=== PATIENT | female | born 1985 | race American Indian/Alaskan Native ===

== ENCOUNTER 2020-06-21 19:01 | Observation (INO) ==
[2020-06-21] MEDS ORDERED: ceFAZolin 1 GM VIAL IV ONE ×2 (19:44→19:54)
[2020-06-21] MEDS ORDERED: ACETAMINOPHEN 325 MG TABLET PO ONE (19:44)
[2020-06-21] MEDS ORDERED: 0.9 % SODIUM CHLORIDE 1,000 ML IV SCH ×2 (19:45→22:43)
--- NOTE | 2020-06-21 20:02 | Emergency Department Note ---
Skin/Abscess/FB HPI General Chief complaint: Skin/Abscess/Rash Stated complaint: R hand swelling Time Seen by Provider: 06/21/20 19:27 Source: patient Mode of arrival: ambulatory Limitations: no limitations History of Present Illness HPI Narrative: Narrative: 35-year-old female presents emergency department because of a swollen left hand. She states that it has been swollen for 4 days. She states she uses intrav enous heroin and she inserted a needle into her left hand. She was unable to find a vein and so she withdrew the needle before injecting the contents. Nevertheless the hand began to swell. She states she was seen at a [facility] 2 days ago when she was prescribed oral antibiotics but she did not start them. She said the hospital in [place] advised her to be reseen if the infection got worse which it has. She states that the swelling extends from the hand all the way up through her forearm and past her elbow to her shoulder. She rates the pain as a 4 on a 0-to-10 scale and says she can manage it with just Tylenol. it is worse with palpation or movement. The pain is constant. It is a dull throbbing. It is better when she holds her hand up. Pain radiates proximally from the hand. There is no associated fever. Patient states that she uses heroin on a daily or every other day basis. States that she uses about 1 point per day. She states she occasionally uses methamphetamines as well. 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 Related Data Home Medications Medication Instructions Recorded Confirmed implanted control See Rx Instructions .ROUTE .COMPLEX 03/28/18 06/21/20 Allergies Allergy/AdvReac Type Severity Reaction Status Date / Time acetaminophen Allergy Rash Verified 06/21/20 19:09 [From Darvocet-N] propoxyphene Allergy Rash Verified 06/21/20 19:09 [From Darvocet-N] codeine AdvReac Other Verified 06/21/20 19:09 [From Tylenol-Codeine #3] ibuprofen AdvReac Other Verified 06/21/20 19:09 ketorolac [From Toradol] AdvReac Anxiety Verified 06/21/20 19:09 tramadol AdvReac Anxiety Verified 06/21/20 19:09 Review of Systems ROS ROS Narrative: Narrative: Constitutional: Reports fever Eyes: Denies eye pain ENT ED: Reports rhinorrhea; Denies throat pain and congestion Cardiovascular: Reports chest pain (From the left upper extremity) Respiratory: Reports shortness of breath, cough and phlegm Gastrointestinal: Denies nausea, vomiting and diarrhea Genitourinary: Denies dysuria Musculoskeletal: Reports back pain and other (Positive neck pain. She has significant pain in the left upper extremity where the cellulitis is located.) Integumentary: Reports rash Neurological: Reports headache Psychiatric: Reports anxiety and depression Hematological/Lymphatic: Denies easy bleeding PFSH Narrative Patient History Narrative: Narrative: Medical/Surgical/Family History All Active Problems (Updated 06/21/20 @ 19:59 by Pepito Arias MD) UTI (urinary tract infection) (Acute) Hand fracture, right (Acute) Pneumonia (Acute) Chest pain (Acute) IV drug abuse (Acute) Bacteremia due to methicillin susceptible Staphylococcus aureus (MSSA) (Acute) Laceration of hand (Acute) Infection of left hand (Acute) Cellulitis (Acute) Medical History (Updated 06/21/20 @ 19:59 by Pepito Arias MD) UTI (urinary tract infection) Social History Smoking Status: Current every day smoker Alcohol Intake Frequency: holiday/special occasion only Substance Use: former substance user, heroin and IV drugs Exam Narrative Narrative: Narrative: General Limitations: no limitations General appearance: Present alert and in distress Head Head: Present atraumatic and normocephalic Eye Eye: Present PERRL and EOMI; Absent scleral icterus ENT ENT: Present normal oropharynx and mucous membranes moist Neck Neck: Present normal inspection and trachea midline Chest Chest: Present normal inspection Respiratory Respiratory: Present normal lung sounds bilaterally Cardiovascular Cardiovascular: Present regular rate and normal rhythm Adbominal Abdominal: Present soft; Absent tenderness Rectal Rectal: Present deferred Extremities Extremities: Present tenderness (Significant erythema and tenderness along the left upper extremity all the way to the shoulder. Firmness medially.), pedal edema (Bilateral lower extremity edema +2/4 in the lower pretibial area.), pretibial edema (Pretibial edema has been present for 4 months. It is 2+/4 pitting.) and other (Major swelling of the left hand with a wound like lesion on the dorsum proximal to the second MCP. Patient has limited flexion extension of her hand secondary to edema. She has a ring present on her fourth digit which was cut off here in the emergency department.); Absent full ROM Back Back: Present normal inspection; Absent tenderness Neurological Neurological: Present alert and oriented X3 Psychiatric Psychiatric: Present normal affect and normal mood Skin Skin: Present warm (WNL) and dry Course Consultations Consultation #1: I discussed case with Dr. Wheeler. Patient will be given 2 g of Ancef IV have hand elevation. We will consider applying a splint. I will contact the hospitalist for admission. Time: 19:45 Consultation #2: call placed to Hospitalist. Time: 19:50 Vital Signs Vital signs: Vital Signs Temperature 98.1 F 06/21/20 19:04 Pulse Rate 112 H 06/21/20 19:04 Respiratory Rate 16 06/21/20 19:04 Blood Pressure 118/74 06/21/20 19:04 Temperature 98.3 F 06/21/20 22:40 Pulse Rate 99 H 06/21/20 22:49 Respiratory Rate 16 06/21/20 22:40 Blood Pressure 117/92 06/21/20 22:49 Pulse Oximetry (%) 96 06/21/20 23:08 MDM MDM Narrative Medical decision making narrative: Narrative: 35-year-old female presents emergency department with a significantly swollen left hand with swelling all the way up into the axilla. Patient states it began 4 days ago. Began she was seen 2 days ago at a hospital in [place] which started her on oral antibiotics but she did not fill the prescription and it continues to get worse. She was advised to return if is getting worse. Differential diagnosis includes left hand abscess, left hand cellulitis, left hand foreign body, left hand osteomyelitis, IVDA with heroin addiction. IV access is obtained and patient had blood cultures of plus blood work obtained. Patient started on Ancef 2 g IV. X-rays will be obtained to rule out foreign body or osteo or fracture. Case was discussed with orthopedist Dr. Wheeler who agrees to follow the patient. Case will be admitted to the hospitalist. Lab Data Result diagrams: 06/21/20 20:12 06/21/20 20:12 Labs: Lab Results 06/21/20 06/21/20 Range/Units 20:12 20:12 WBC 6.1 (4.5-11.0) K/mcL RBC 3.48 L (4.00-5.20) M/mcL Hgb 10.6 L (12.0-15.0) g/dL Hct 32.7 L (36.0-48.0) % MCV 94.0 (80.0-100.0) fL MCH 30.5 (26.0-34.0) pg MCHC 32.4 (31.0-36.0) g/dL RDW 12.5 (11.5-14.5) % Plt Count 212 (140-440) K/mcL MPV 11.7 H (7.4-10.4) fL Neut % (Auto) 56.5 (38.0-78.0) % Lymph % (Auto) 29.6 (15.0-49.0) % Dale % (Auto) 10.9 (1.0-12.0) % Eos % (Auto) 2.3 (0.0-7.0) % Baso % (Auto) 0.7 (0.0-2.0) % Lymph # (Auto) 1.79 (1.50-4.80) K/mcL Dale # (Auto) 0.66 (0.10-0.90) K/mcL Eos # (Auto) 0.14 (0.00-0.70) K/mcL Baso # (Auto) 0.04 (0.00-0.20) K/mcL Absolute Neutrophils 3.42 (1.80-8.00) K/mcL Sodium 132 L (133-145) mmol/L Potassium 3.8 (3.3-5.1) mmol/L Chloride 100 (96-108) mmol/L Carbon Dioxide 26 (22-30) mmol/L Anion Gap 6.0 L (8.0-16.0) BUN 9 (6-20) mg/dL Creatinine 0.6 (0.6-1.1) mg/dL GFR Calculation 119 Glucose 115 H (70-105) mg/dL Calcium 8.6 (8.6-10.4) mg/dL Total Bilirubin 0.2 (0.1-1.0) mg/dL AST 22 (<32) U/L ALT 19 (<40) U/L Alkaline Phosphatase 68 (39-117) U/L Total Protein 6.7 (5.9-8.4) gm/dL Albumin 3.8 (3.2-5.2) gm/dL Globulin 2.9 (2.2-3.7) gm/dL Albumin/Globulin Ratio 1.3 (1.0-2.3) ED POC Tests ED POC Tests: LIBAN - SARS Antigen Negative Discharge Plan Patient/Caregiver Discharge Instructions Pt seen by LOGISTICS ADMINISTRATOR/PA only: No Clinical Impression: Infection of left hand, IV drug abuse Cellulitis Qualifiers: Site of cellulitis: extremity Site of cellulitis of extremity: upper extremity Laterality: left Qualified Code(s): L03.114 - Cellulitis of left upper limb Activity: other Patient Disposition: Still a Patient Condition: Fair Discharge Date/Time: 06/21/20 22:30 Discharge Comment: [id number]
--- NOTE | 2020-06-21 20:46 | Internal Med History&Physical ---
HPI History of Present Illness Patient information: Note initiated : 06/21/20 at 8:42 pm Service Date, if different from initiated Date: [] Patient: Lucy Ruth a 35 y/o F admitted on for R hand swelling. Chief Complaint: [] History of present illness: Ms. Ruth is a 35 year old F Presents to the ED with left hand swelling and pain. 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 She used her left hand recently. About 4 days ago started having increased swelling. She went to the hospital [place] was prescribed oral antibiotics but did not take those because she said she could not get a ride to the laboratory clinic. She says over the past day her hands got worse. Increased pain swelling redness. Said yesterday she had a fever letter friend took and said she thinks it was 100.9. In the ED she was seen evaluated and the case was discussed with the orthopedic surgeon who recommended splint as well as IV antibiotics for several days and he will follow the patient. Review of Systems: Pertinent positives as above plus headache. Denies headache/chills/nausea/vomiting/abdominal pain/cough/dyspnea/diarrhea. Otherwise see above. PFSH PFSH All Active Problems (Updated 06/21/20 @ 19:59 by Pepito Arias MD) UTI (urinary tract infection) (Acute) Hand fracture, right (Acute) Pneumonia (Acute) Chest pain (Acute) IV drug abuse (Acute) Bacteremia due to methicillin susceptible Staphylococcus aureus (MSSA) (Acute) Laceration of hand (Acute) Infection of left hand (Acute) Cellulitis (Acute) Medical History (Updated 06/21/20 @ 19:59 by Pepito Arias MD) UTI (urinary tract infection) Social History (Updated 04/26/18 @ 11:06 by Loco Seals MD) alcohol intake frequency: holiday/special occasion only substance use type: former substance user, heroin and IV drugs MEDS/ALLERGIES Home Medications and Allergies Home Medications Medication Instructions Recorded Confirmed Type implanted control IL 03/28/18 04/26/18 History Allergies Allergy/AdvReac Type Severity Reaction Status Date / Time acetaminophen Allergy Rash Verified 06/21/20 19:09 [From Darvocet-N] propoxyphene Allergy Rash Verified 06/21/20 19:09 [From Darvocet-N] codeine AdvReac Other Verified 06/21/20 19:09 [From Tylenol-Codeine #3] ibuprofen AdvReac Other Verified 06/21/20 19:09 ketorolac [From Toradol] AdvReac Anxiety Verified 06/21/20 19:09 tramadol AdvReac Anxiety Verified 06/21/20 19:09 EXAM Constitutional Vitals: Temp Pulse Resp BP 98.1 F 112 H 16 118/74 06/21/20 19:04 06/21/20 19:04 06/21/20 19:04 06/21/20 19:04 Exam: General: Alert, Awake, No acute Distress Eyes/N/T: EOMI, PERRL, Head/Neck: neck supple, normocephalic atraumatic CV: RRR, No murmurs, normal s1/s2 Pulm: Clear b/l, no wheezing/rhonchi/rales Abd: soft, nontender, +BS x4 Ext: no clubbing/cyanosis/edema lower extremities. Left upper extremity swollen erythematous tender to touch. She does have sensation in her fingers. Splint in place. Neuro: Alert, no focal deficits, moves all extremities, CN 2-12 grossly intact, symmetrical strength b/l upper/lower, sensations intact b/l upper/lower Skin: warm/dry DATA Data Completed and Pending Labs: Labs from last 24 hours 06/21/20 06/21/20 20:12 20:12 WBC Pending RBC Pending Hgb Pending Hct Pending MCV Pending MCH Pending MCHC Pending RDW Pending Plt Count Pending MPV Pending Neut % (Auto) Pending Sodium Pending Potassium Pending Chloride Pending Carbon Dioxide Pending Anion Gap Pending BUN Pending Creatinine Pending GFR Calculation Pending Glucose Pending Calcium Pending Total Bilirubin Pending AST Pending ALT Pending Alkaline Phosphatase Pending Total Protein Pending Albumin Pending Globulin Pending Albumin/Globulin Ratio Pending A/P Narrative A/P Narrative: A: *LLE cellulitis: *h/o IVDA: * P: -IV abx -pending BC -Ortho consulted -labs pending -referral to Dr. Álvarez -ppx: SCD/ambulation Time Spent With Patient Time: Total time spent is greater than 50% in coordination of care (as documented) at patient's floor/unit and/or counseling patient: QUALITY Stroke Symptom Onset Unknown: No
[2020-06-21 22:13] LABS: ALT/SGPT 19 U/L (<40); AST/SGOT 22 U/L (<32); Albumin 3.8 gm/dL (3.2-5.2); Albumin/Globulin Ratio 1.3 (1.0-2.3); Alkaline Phosphatase 68 U/L (39-117); Bilirubin,Total 0.2 mg/dL (0.1-1.0); Blood Urea Nitrogen 9 mg/dL (6-20); Calcium 8.6 mg/dL (8.6-10.4); Carbon Dioxide 26 mmol/L (22-30); Chloride 100 mmol/L (96-108); Globulin 2.9 gm/dL (2.2-3.7); Glomerular Filtration Rate 119; Glucose 115 mg/dL (70-105)
[2020-06-21 22:14] LABS: Basophils # (Auto) 0.04 K/mcL (0.00-0.20); Basophils % (Auto) 0.7 % (0.0-2.0); Eosinophils # (Auto) 0.14 K/mcL (0.00-0.70); Eosinophils % (Auto) 2.3 % (0.0-7.0); Hematocrit 32.7 % (36.0-48.0); Hemoglobin 10.6 g/dL (12.0-15.0); Lymphocytes # (Auto) 1.79 K/mcL (1.50-4.80); Lymphocytes % (Auto) 29.6 % (15.0-49.0); Mean Corpuscular HGB Conc 32.4 g/dL (31.0-36.0); Mean Platelet Volume 11.7 fL (7.4-10.4); Monocytes # (Auto) 0.66 K/mcL (0.10-0.90); Monocytes % (Auto) 10.9 % (1.0-12.0); Neutrophils % (Auto) 56.5 % (38.0-78.0); Platelet Count 212 K/mcL (140-440); RBC 3.48 M/mcL (4.00-5.20); Red Cell Distribution Width 12.5 % (11.5-14.5); WBC 6.1 K/mcL (4.5-11.0)
[2020-06-21] MEDS ORDERED: IOPAMIDOL 100 ML BOTTLE IV ONE (22:41)
[2020-06-21] MEDS ORDERED: VANCOMYCIN PER PHARMACY IV ONE (22:43)
[2020-06-21] MEDS ORDERED: POLYETHYLENE GLYCOL 3350 17 GM PACKET PO PRN (22:43)
[2020-06-21] MEDS ORDERED: cefTRIAXone 2 GM in DEXTROSE 5% IN WATER 50 ML IV SCH (22:43)
[2020-06-21] MEDS ORDERED: MAGNESIUM SULFATE 2 GM/50 ML BAG IV PRN (22:43)
[2020-06-21] MEDS ORDERED: SENNOSIDES 1 TABLET PO PRN (22:43)
[2020-06-21] MEDS ORDERED: ONDANSETRON 4 MG/2 ML VIAL IV PRN (22:43)
[2020-06-21] MEDS ORDERED: POTASSIUM CHLORIDE 20 MEQ TABLET PO PRN ×2 (22:43)
[2020-06-21] MEDS ORDERED: LACTULOSE 20 GM/30 ML ORAL.SOL PO PRN (22:43)
[2020-06-21] MEDS ORDERED: POTASSIUM CHLORIDE 40 MEQ in DEXTROSE 5% IN WATER 500 ML IV PRN (22:43)
[2020-06-21] MEDS ORDERED: VANCOMYCIN 1,000 MG in 0.9 % SODIUM CHLORIDE 250 ML IV ONE (22:46)
[2020-06-21] MEDS ORDERED: morphine 4 MG/ML VIAL ONE (23:42)
[2020-06-21] MEDS: DOCUSATE SODIUM 100 MG CAPSULE PO SCH (23:46)
[2020-06-21] MEDS: 0.9 % SODIUM CHLORIDE 10 ML SYRINGE IV SCH (23:46)
[2020-06-21] MEDS: morphine 4 MG/ML VIAL IV PRN (23:47)
[2020-06-22] MEDS ORDERED: HYDROcodone/APAP 5/325MG TABLET PO ONE (00:07)
[2020-06-22] MEDS: HYDROcodone/APAP 5/325MG TABLET PO PRN ×3 (00:07→21:17)
[2020-06-22] MEDS: 0.9 % SODIUM CHLORIDE 10 ML SYRINGE IV SCH ×3 (05:19→21:28)
--- NOTE | 2020-06-22 07:06 | XRay Report ---
INDICATION: infection poss fb. IVDA TECHNIQUE: PA, oblique, lateral left hand COMPARISON: Previous examination dated 05/12/2019 FINDINGS: Generalized soft tissue swelling. No radiopaque foreign body. No soft tissue gas. There is no fracture. No osseous abnormality IMPRESSION: 1. Generalized soft tissue swelling 2. No radiopaque foreign body or gas Interpreted and Authenticated by: Edd Cardona 06/22/20
[2020-06-22] MEDS: morphine 4 MG/ML VIAL IV PRN ×3 (07:15→18:32)
--- NOTE | 2020-06-22 07:22 | Internal Med Progress Note ---
SUBJECTIVE Subjective Patient information: Note initiated : 06/22/20 at 7:19 am Service Date, if different from initiated Date: [] Patient: Lucy Ruth a 35 y/o F admitted on 06/21/20 for R hand swelling. Chief Complaint: [] Interval history: History of present illness: Ms. Ruth is a 35 year old F Presents to the ED with left hand swelling and pain. 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 She used her left hand recently. About 4 days ago started having increased swelling. She went to the hospital [place] was prescribed oral antibiotics but did not take those because she said she could not get a ride to the laboratory clinic. She says over the past day her hands got worse. Increased pain swelling redness. Said yesterday she had a fever letter friend took and said she thinks it was 1 00.9. In the ED she was seen evaluated and the case was discussed with the orthopedic surgeon who recommended splint as well as IV antibiotics for several days and he will follow the patient. 06/22 Patient says her left hand arm feels less pressure. No overnight event or new complaints. Hyponatremia resolved. Pending blood cultures Review of Systems: Headache. Denies fever/chills/nausea/vomiting/chest or abdominal pain/cough/dyspnea/diarrhea. Otherwise see above. Constitutional Vitals: Vital Signs Temp Pulse Resp BP Pulse Ox 98.1 F 82 18 105/62 98 06/22/20 06:44 06/22/20 06:44 06/22/20 06:44 06/22/20 06:44 06/22/20 06:44 Period Temp Pulse Resp BP Sys/Thomas Pulse Ox Last 24 Hr 98.1 F-98.7 F 82-112 16-18 102-124/59-92 96-100 Intake and Output 06/21/20 06/22/20 06/22/20 21:59 05:59 13:59 Intake Total 1540 Output Total 400 Balance 1140 Weight 68.946 kg 68.946 kg Intake & Output: Intake & Output 06/21/20 06/22/20 06/22/20 21:59 05:59 13:59 Intake Total 1540 Output Total 400 Balance 1140 Weight 68.946 kg 68.946 kg Intake: IV 1540 Sodium Chloride 0.9% 1,000 ml @ 1240 125 mls/hr IV .Q8H [facility] Rx#: [id number] Vancomycin 1,000 mg In Sodium 250 Chloride 0.9% 250 ml @ 250 mls/ hr IV ONCE ONE Rx#:[id number] Rocephin 2 gm In Dextrose 5% in 50 Water 50 ml @ 100 mls/hr IV Q24H [facility] Rx#:[id number] Output: Void Amount 400 Other: Meal Dinner Percent of Meal Consumed 100% Feeding Ability Assist with Tray Set Up Urine Appearance Clear Urine Color Bright Yellow Urine Odor Normal # Voids 1 Exam: General: Alert, Awake, No acute Distress Eyes/N/T: EOMI, Head/Neck: neck supple, CV: RRR, No murmurs, Pulm: Clear b/l, no wheezing/rhonchi/rales Abd: soft, nontender, +BS x4 Ext: no clubbing/cyanosis/edema lower extremities. Left upper extremity swollen erythematous tender to touch. Splint in place. Neuro: Alert, no focal deficits, moves all extremities, Skin: warm/dry OBJ DATA Labs CBC & Chem 7: 06/21/20 20:12 06/22/20 05:57 Labs: Abnormal Lab Results 06/21/20 06/21/20 20:12 20:12 RBC 3.48 L Hgb 10.6 L Hct 32.7 L MPV 11.7 H Sodium 132 L Anion Gap 6.0 L Glucose 115 H Meds: Medications Hydrocodone Bitart/Acetaminophen (Hydrocodone/Apap 5/325mg Tablet) 1 tab PO Q4HP PRN PRN Reason: PAIN LEVEL 3-6 Last Admin: 06/22/20 00:07 Dose: 1 tab Documented by: Docusate Sodium (Docusate Sodium 100 Mg Capsule) 100 mg PO BID [facility]IO Last Admin: 06/21/20 23:46 Dose: Not Given Documented by: Potassium Chloride 40 meq/ (Dextrose) 520 mls @ 130 mls/hr IV UD PRN PRN Reason: Potassium < 3 Magnesium Sulfate (Magnesium Sulfate) 2 gm in 50 mls @ 50 mls/hr IV UD PRN PRN Reason: Magnesium </= 1.6 Ceftriaxone Sodium 2 gm/ (Dextrose) 50 mls @ 100 mls/hr IV Q24H [facility]; Protocol Last Infusion: 06/22/20 00:55 Dose: Infused Documented by: Sodium Chloride (Sodium Chloride 0.9%) 1,000 mls @ 125 mls/hr IV .Q8H [facility] Stop: 06/22/20 06:42 Last Infusion: 06/22/20 03:56 Dose: Infused Documented by: Vancomycin HCl 1,000 mg/ (Sodium Chloride) 250 mls @ 250 mls/hr IV ONCE ONE; Protocol Stop: 06/21/20 23:45 Last Infusion: 06/22/20 00:00 Dose: Infused Documented by: Lactulose (Lactulose 20 Gm/30 Ml Oral.Cindy) 20 gm PO DAILYP PRN PRN Reason: Constipation Morphine Sulfate (Morphine 4 Mg/Ml Vial) 0 mg IV Q3HP PRN PRN Reason: Pain Last Admin: 06/21/20 23:47 Dose: 3 mg Documented by: Ondansetron HCl (Ondansetron 4 Mg/2 Ml Vial) 4 mg IV Q4HP PRN PRN Reason: Nausea And Vomiting Polyethylene Glycol (Polyethylene Glycol 3350 17 Gm Packet) 17 gm PO DAILYP PRN PRN Reason: Constipation Potassium Chloride (Potassium Chloride 20 Meq Tablet) 40 meq PO UD PRN PRN Reason: Potssium is 3-3.5 Potassium Chloride (Potassium Chloride 20 Meq Tablet) 40 meq PO UD PRN PRN Reason: Potassium < 3 Senna (Sennosides 1 Tablet) 2 tab PO DAILYP PRN PRN Reason: Constipation Sodium Chloride (0.9 % Sodium Chloride 10 Ml Syringe) 10 ml IV Q8 [facility] Last Admin: 06/22/20 05:19 Dose: 10 ml Documented by: Vancomycin HCl (Vancomycin Per Pharmacy) 1 order IV ONCE ONE; Protocol Stop: 06/21/20 22:44 Last Admin: 06/22/20 00:01 Dose: Not Given Documented by: A/P Narrative A/P Narrative: A: *LUE cellulitis: *h/o IVDA: *Hyponatremia: resolved *anemia, chronic: P: -vanco/rocephin deescalate at 48hrs, -pending BC -Ortho consulted -referral to Dr. Álvarez -ppx: SCD/ambulation Time Spent With Patient Time: Total time spent is greater than 50% in coordination of care (as documented) at patient's floor/unit and/or counseling patient: QUALITY Stroke Symptom Onset Unknown: No VTE Deep Vein Thrombosis/Pulmonary Embolism Present on Admission: No
[2020-06-22] MEDS ORDERED: VANCOMYCIN PER PHARMACY IV SCH (07:45)
[2020-06-22 08:10] LABS: ALT/SGPT 18 U/L (<40); AST/SGOT 29 U/L (<32); Albumin 3.1 gm/dL (3.2-5.2); Alkaline Phosphatase 62 U/L (39-117); Bilirubin,Direct < 0.2 mg/dL (0-0.3); Bilirubin,Total 0.2 mg/dL (0.1-1.0); Blood Urea Nitrogen 8 mg/dL (6-20); Carbon Dioxide 18 mmol/L (22-30); Chloride 110 mmol/L (96-108); Glomerular Filtration Rate 126; Glucose 102 mg/dL (70-105); Lactate Dehydrogenase 275 U/L (135-225); Phosphorous 4.5 mg/dL (2.5-4.5); Triglycerides 42 mg/dL (<150); Uric Acid 2.2 mg/dL (2.5-8.0)
--- NOTE | 2020-06-22 08:45 | XRay Report ---
INDICATION: pain TECHNIQUE: AP internal and external rotation, Y view COMPARISON: None. FINDINGS: Negative left shoulder. No fracture. No glenohumeral dislocation. Acromioclavicular joint is unremarkable. Scapula and clavicle are negative IMPRESSION: Negative left shoulder Interpreted and Authenticated by: Edd Cardona 06/22/20
[2020-06-22] MEDS: VANCOMYCIN 1,000 MG in 0.9 % SODIUM CHLORIDE 250 ML IV SCH ×2 (08:47→21:17)
[2020-06-22] MEDS: DOCUSATE SODIUM 100 MG CAPSULE PO SCH ×2 (08:47→20:46)
[2020-06-22 10:29] LABS: Basophils # (Auto) 0.03 K/mcL (0.00-0.20); Basophils % (Auto) 0.6 % (0.0-2.0); Eosinophils # (Auto) 0.13 K/mcL (0.00-0.70); Eosinophils % (Auto) 2.5 % (0.0-7.0); Hematocrit 31.5 % (36.0-48.0); Hemoglobin 10.4 g/dL (12.0-15.0); Lymphocytes # (Auto) 1.52 K/mcL (1.50-4.80); Lymphocytes % (Auto) 29.6 % (15.0-49.0); Mean Cell Volume 93.2 fL (80.0-100.0); Monocytes # (Auto) 0.56 K/mcL (0.10-0.90); Monocytes % (Auto) 10.9 % (1.0-12.0); Neutrophils % (Auto) 56.4 % (38.0-78.0); Platelet Count 243 K/mcL (140-440); RBC 3.38 M/mcL (4.00-5.20); Red Cell Distribution Width 12.5 % (11.5-14.5); WBC 5.1 K/mcL (4.5-11.0)
[2020-06-22] MEDS: cefTRIAXone 2 GM in DEXTROSE 5% IN WATER 50 ML IV SCH (15:56)
[2020-06-23] MEDS: morphine 4 MG/ML VIAL IV PRN ×4 (00:05→12:14)
[2020-06-23] MEDS: 0.9 % SODIUM CHLORIDE 10 ML SYRINGE IV SCH ×2 (04:58→13:46)
--- NOTE | 2020-06-23 07:18 | Internal Med Progress Note ---
SUBJECTIVE Subjective Patient information: Note initiated : 06/23/20 at 7:18 am Service Date, if different from initiated Date: [] Patient: Lucy Ruth 35 y/o F admitted on 06/21/20 for R hand swelling. Chief Complaint: [] Constitutional Vitals: Vital Signs Temp Pulse Resp BP Pulse Ox 98.7 F 87 14 98/53 97 06/23/20 06:51 06/23/20 06:51 06/23/20 06:51 06/23/20 06:51 06/23/20 06:51 Period Temp Pulse Resp BP Sys/Thomas Pulse Ox Last 24 Hr 97.7 F-99.1 F 70-95 12-20 98-125/48-75 96-98 Intake and Output 06/22/20 06/23/20 06/23/20 21:59 05:59 13:59 Intake Total 50 850 Output Total 900 1200 Balance -850 -350 Weight 68.538 kg Intake & Output: Intake & Output 06/22/20 06/23/20 06/23/20 21:59 05:59 13:59 Intake Total 50 850 Output Total 900 1200 Balance -850 -350 Weight 68.538 kg Intake: IV 50 250 Vancomycin 1,000 mg In Sodium 250 Chloride 0.9% 250 ml @ 250 mls/ hr IV Q12H [facility] Rx#:[id number] Rocephin 2 gm In Dextrose 5% in 50 Water 50 ml @ 100 mls/hr IV DAILY [facility] Rx#:[id number] Oral 0 600 Output: Void Amount 900 1200 Other: Urine Appearance Clear Clear Urine Color Bright Yellow Bright Yellow Urine Odor Normal OBJ DATA Labs CBC & Chem 7: 06/22/20 09:30 06/22/20 05:57 Labs: Abnormal Lab Results 06/22/20 06/22/20 06/21/20 09:30 05:57 20:12 RBC 3.38 L Hgb 10.4 L Hct 31.5 L MPV 11.0 H Sodium 132 L Chloride 110 H Carbon Dioxide 18 L Anion Gap 6.0 L Creatinine 0.5 L Glucose 115 H Uric Acid 2.2 L Lactate Dehydrogenase 275 H Albumin 3.1 L 06/21/20 20:12 RBC 3.48 L Hgb 10.6 L Hct 32.7 L MPV 11.7 H Sodium Chloride Carbon Dioxide Anion Gap Creatinine Glucose Uric Acid Lactate Dehydrogenase Albumin Meds: Medications Hydrocodone Bitart/Acetaminophen (Hydrocodone/Apap 5/325mg Tablet) 1 tab PO Q4HP PRN PRN Reason: PAIN LEVEL 3-6 Last Admin: 06/22/20 21:17 Dose: 1 tab Documented by: Docusate Sodium (Docusate Sodium 100 Mg Capsule) 100 mg PO BID [facility] Last Admin: 06/22/20 20:46 Dose: Not Given Documented by: Potassium Chloride 40 meq/ (Dextrose) 520 mls @ 130 mls/hr IV UD PRN PRN Reason: Potassium < 3 Magnesium Sulfate (Magnesium Sulfate) 2 gm in 50 mls @ 50 mls/hr IV UD PRN PRN Reason: Magnesium </= 1.6 Ceftriaxone Sodium 2 gm/ (Dextrose) 50 mls @ 100 mls/hr IV DAILY [facility]; Protocol Last Infusion: 06/22/20 17:10 Dose: Infused Documented by: Vancomycin HCl 1,000 mg/ (Sodium Chloride) 250 mls @ 250 mls/hr IV Q12H [facility] Last Infusion: 06/22/20 22:00 Dose: Infused Documented by: Lactulose (Lactulose 20 Gm/30 Ml Oral.Cindy) 20 gm PO DAILYP PRN PRN Reason: Constipation Morphine Sulfate (Morphine 4 Mg/Ml Vial) 0 mg IV Q3HP PRN PRN Reason: Pain Last Admin: 06/23/20 04:57 Dose: 3 mg Documented by: Ondansetron HCl (Ondansetron 4 Mg/2 Ml Vial) 4 mg IV Q4HP PRN PRN Reason: Nausea And Vomiting Polyethylene Glycol (Polyethylene Glycol 3350 17 Gm Packet) 17 gm PO DAILYP PRN PRN Reason: Constipation Potassium Chloride (Potassium Chloride 20 Meq Tablet) 40 meq PO UD PRN PRN Reason: Potssium is 3-3.5 Potassium Chloride (Potassium Chloride 20 Meq Tablet) 40 meq PO UD PRN PRN Reason: Potassium < 3 Senna (Sennosides 1 Tablet) 2 tab PO DAILYP PRN PRN Reason: Constipation Sodium Chloride (0.9 % Sodium Chloride 10 Ml Syringe) 10 ml IV Q8 [facility] Last Admin: 06/23/20 04:58 Dose: 10 ml Documented by: Vancomycin HCl (Vancomycin Per Pharmacy) 1 order IV UD [facility]; Protocol A/P Time Spent With Patient Time: Total time spent is greater than 50% in coordination of care (as documented) at patient's floor/unit and/or counseling patient: QUALITY Stroke Symptom Onset Unknown: No VTE Deep Vein Thrombosis/Pulmonary Embolism Present on Admission: No
--- NOTE | 2020-06-23 07:18 | Internal Med Progress Note ---
SUBJECTIVE Subjective Patient information: Note initiated : 06/23/20 at 7:16 am Service Date, if different from initiated Date: [] Patient: Lucy Ruth 35 y/o F admitted on 06/21/20 for R hand swelling. Chief Complaint: [] Interval history: History of present illness: Ms. Ruth is a 35 year old F Presents to the ED with left hand swelling and pain. 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 She used her left hand recently. About 4 days ago started having increased swelling. She went to the hospital [place] was prescribed oral antibiotics but did not take those because she said she could not get a ride to the laboratory clinic. She says over the past day her hands got worse. Increased pain swelling redness. Said yesterday she had a fever letter friend took and said she thinks it was 1 00.9. In the ED she was seen evaluated and the case was discussed with the orthopedic surgeon who recommended splint as well as IV antibiotics for several days and he will follow the patient. 4/ Patient says her left hand arm feels less pressure. No overnight event or new complaints. Hyponatremia resolved. Pending blood cultures / Forearm swelling much improved. Hand swelling still president. And still tight but she is able to move her fingers little bit more. Still very tender. Review of Systems: Headache. Denies fever/chills/nausea/vomiting/chest or abdominal pain/cough/dyspnea/diarrhea. Otherwise see above. Constitutional Vitals: Vital Signs Temp Pulse Resp BP Pulse Ox 98.7 F 87 14 98/53 97 06/23/20 06:51 06/23/20 06:51 06/23/20 06:51 06/23/20 06:51 06/23/20 06:51 Period Temp Pulse Resp BP Sys/Thomas Pulse Ox Last 24 Hr 97.7 F-99.1 F 70-95 12-20 98-125/48-75 96-98 Intake and Output 06/22/20 06/23/20 06/23/20 21:59 05:59 13:59 Intake Total 50 850 Output Total 900 1200 Balance -850 -350 Weight 68.538 kg Intake & Output: Intake & Output 06/22/20 06/23/20 06/23/20 21:59 05:59 13:59 Intake Total 50 850 Output Total 900 1200 Balance -850 -350 Weight 68.538 kg Intake: IV 50 250 Vancomycin 1,000 mg In Sodium 250 Chloride 0.9% 250 ml @ 250 mls/ hr IV Q12H [facility] Rx#:[id number] Rocephin 2 gm In Dextrose 5% in 50 Water 50 ml @ 100 mls/hr IV DAILY [facility] Rx#:[id number] Oral 0 600 Output: Void Amount 900 1200 Other: Urine Appearance Clear Clear Urine Color Bright Yellow Bright Yellow Urine Odor Normal Exam: General: Alert, Awake, No acute Distress Eyes/N/T: EOMI, Head/Neck: neck supple, CV: RRR, No murmurs, Pulm: Clear b/l, no wheezing/rhonchi/rales Abd: soft, nontender, +BS x4 Ext: no clubbing/cyanosis/edema lower extremities. Left forearm swelling much improved. Left hand still edematous erythematous tender to the touch. Able to move her fingers a little bit more. Splint in place per ortho Neuro: Alert, no focal deficits, moves all extremities, Skin: warm/dry OBJ DATA Labs CBC & Chem 7: 06/22/20 09:30 06/22/20 05:57 Labs: Abnormal Lab Results 06/22/20 06/22/20 06/21/20 09:30 05:57 20:12 RBC 3.38 L Hgb 10.4 L Hct 31.5 L MPV 11.0 H Sodium 132 L Chloride 110 H Carbon Dioxide 18 L Anion Gap 6.0 L Creatinine 0.5 L Glucose 115 H Uric Acid 2.2 L Lactate Dehydrogenase 275 H Albumin 3.1 L 06/21/20 20:12 RBC 3.48 L Hgb 10.6 L Hct 32.7 L MPV 11.7 H Sodium Chloride Carbon Dioxide Anion Gap Creatinine Glucose Uric Acid Lactate Dehydrogenase Albumin Meds: Medications Hydrocodone Bitart/Acetaminophen (Hydrocodone/Apap 5/325mg Tablet) 1 tab PO Q4HP PRN PRN Reason: PAIN LEVEL 3-6 Last Admin: 06/22/20 21:17 Dose: 1 tab Documented by: Docusate Sodium (Docusate Sodium 100 Mg Capsule) 100 mg PO BID [facility] Last Admin: 06/22/20 20:46 Dose: Not Given Documented by: Potassium Chloride 40 meq/ (Dextrose) 520 mls @ 130 mls/hr IV UD PRN PRN Reason: Potassium < 3 Magnesium Sulfate (Magnesium Sulfate) 2 gm in 50 mls @ 50 mls/hr IV UD PRN PRN Reason: Magnesium </= 1.6 Ceftriaxone Sodium 2 gm/ (Dextrose) 50 mls @ 100 mls/hr IV DAILY [facility]; Protocol Last Infusion: 06/22/20 17:10 Dose: Infused Documented by: Vancomycin HCl 1,000 mg/ (Sodium Chloride) 250 mls @ 250 mls/hr IV Q12H [facility] Last Infusion: 06/22/20 22:00 Dose: Infused Documented by: Lactulose (Lactulose 20 Gm/30 Ml Oral.Cindy) 20 gm PO DAILYP PRN PRN Reason: Constipation Morphine Sulfate (Morphine 4 Mg/Ml Vial) 0 mg IV Q3HP PRN PRN Reason: Pain Last Admin: 06/23/20 04:57 Dose: 3 mg Documented by: Ondansetron HCl (Ondansetron 4 Mg/2 Ml Vial) 4 mg IV Q4HP PRN PRN Reason: Nausea And Vomiting Polyethylene Glycol (Polyethylene Glycol 3350 17 Gm Packet) 17 gm PO DAILYP PRN PRN Reason: Constipation Potassium Chloride (Potassium Chloride 20 Meq Tablet) 40 meq PO UD PRN PRN Reason: Potssium is 3-3.5 Potassium Chloride (Potassium Chloride 20 Meq Tablet) 40 meq PO UD PRN PRN Reason: Potassium < 3 Senna (Sennosides 1 Tablet) 2 tab PO DAILYP PRN PRN Reason: Constipation Sodium Chloride (0.9 % Sodium Chloride 10 Ml Syringe) 10 ml IV Q8 [facility] Last Admin: 06/23/20 04:58 Dose: 10 ml Documented by: Vancomycin HCl (Vancomycin Per Pharmacy) 1 order IV UD [facility]; Protocol A/P Narrative A/P Narrative: A: *L hand cellulitis: *h/o IVDA: *Hyponatremia: resolved *anemia, chronic: P: -vanco(d/c)/rocephin -pending BC -CT hand pending -Ortho consulted -referral to Dr. Álvarez -ppx: SCD/ambulation Time Spent With Patient Time: Total time spent is greater than 50% in coordination of care (as documented) at patient's floor/unit and/or counseling patient: QUALITY Stroke Symptom Onset Unknown: No VTE Deep Vein Thrombosis/Pulmonary Embolism Present on Admission: No
[2020-06-23] MEDS: HYDROcodone/APAP 5/325MG TABLET PO PRN ×2 (07:59→13:23)
[2020-06-23] MEDS: cefTRIAXone 2 GM in DEXTROSE 5% IN WATER 50 ML IV SCH (08:00)
[2020-06-23] MEDS: DOCUSATE SODIUM 100 MG CAPSULE PO SCH (09:08)
--- NOTE | 2020-06-23 09:10 | Cat Scan Report ---
INDICATION: r/o abscess, has cellulitis TECHNIQUE: Axial postcontrast enhanced images through the left hand. Sagittal and coronal reformatted images COMPARISON: Previous plain film examinations dated 06/21/2020, 05/12/2019 FINDINGS: Generalized subcutaneous edema consistent with cellulitis. No radiopaque foreign body. No soft tissue gas. There is a focal fluid collection in the dorsal soft tissues. This is posterior to the space between the 1st and 2nd metacarpals. This is just deep to the skin surface. This measures 15 x 21 x 23 mm. Appearance is consistent with a small abscess. There are no gas bubbles. Osseous structures are negative. No fracture or evidence for osteomyelitis. IMPRESSION: 1. Subcutaneous fluid collection dorsal to the space between the 1st and 2nd metacarpals. Appearance is consistent with abscess 2. Subcutaneous edema consistent with cellulitis 3. No foreign body Interpreted and Authenticated by: Edd Cardona 06/23/20
--- NOTE | 2020-06-23 10:02 | Discharge Summary ---
Discharge Provider Provider Patient information: Note initiated : 06/23/20 at 10:00 am Service Date, if different from initiated Date: [] Patient: Lucy Ruth 35 y/o F admitted on 06/21/20 for R hand swelling. Chief Complaint: [] Date of admission: 06/21/20 22:40 Discharge date: 06/23/20 Primary care physician: Rex Gomez Consults: 06/21/20 22:43 Consult to Physician [CONS] Routine Comment: Consulting Provider: Mark Wheeler Reason For Exam: Physician to Consult Discharge Meds Discharge Medications Home Medications implanted control See Rx Instructions .ROUTE .COMPLEX 03/28/18 [History Confirmed 06/21/20 Last Taken 06/21/20] amoxicillin 875 mg PO Q12H #10 tab 06/23/20 [Rx Last Taken Unknown] doxycycline hyclate 100 mg PO BID #10 cap 06/23/20 [Rx Last Taken Unknown] hydrocodone-acetaminophen 1 tab PO Q4-6HP PRN #20 tab 06/23/20 [Rx Last Taken Unknown] COURSE Hospital Course Hospital course: Left hand cellulitis with abscess History of present illness: Ms. Ruth is a 35 year old F Presents to the ED with left hand swelling and pain. 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 She used her left hand recently. About 4 days ago started having increased swelling. She went to the hospital [place] was prescribed oral antibiotics but did not take those because she said she could not get a ride to the laboratory clinic. She says over the past day her hands got worse. Increased pain swelling redness. Said yesterday she had a fever letter friend took and said she thinks it was 100.9. In the ED she was seen evaluated and the case was discussed with the orthopedic surgeon who recommended splint as well as IV antibiotics for several days and he will follow the patient. 4/4 Patient says her left hand arm feels less pressure. No overnight event or new complaints. Hyponatremia resolved. Pending blood cultures 4/5 Forearm swelling much improved. Hand swelling still president. And still tight but she is able to move her fingers little bit more. Still very tender. *Radiology will drain today and then patient will be sent out on oral antibio tics and follow-up with Dr. Netting orthopedic surgeon to f/u with wound check. A: *L hand cellulitis/abscess: *h/o IVDA: *Hyponatremia: resolved *anemia, chronic: Discharge diagnosis: Left hand cellulitis with abscess hyponatremia Secondary discharge diagnosis: Chronic anemia history of IV drug use Time Spent with Patient Time attestation: Total time spent providing and/or coordinating discharge services: EXAM Constitutional Vitals: Temp Pulse Resp BP Pulse Ox 98.7 F 87 14 98/53 97 06/23/20 06:51 06/23/20 06:51 06/23/20 06:51 06/23/20 06:51 06/23/20 06:51 Discharge Data Data Completed and Pending Labs on day of discharge: Labs from last 24 hours 06/23/20 06/23/20 06/23/20 08:42 07:55 07:55 WBC RBC Hgb Hct MCV MCH MCHC RDW Plt Count MPV Neut % (Auto) Lymph % (Auto) [place] % (Auto) Eos % (Auto) Baso % (Auto) Lymph # (Auto) [place] # (Auto) Eos # (Auto) Baso # (Auto) Absolute Neutrophils Sodium Pending Potassium Pending Chloride Pending Carbon Dioxide Pending Anion Gap Pending BUN Pending Creatinine Pending GFR Calculation Pending Glucose Pending Calcium Pending Vancomycin Trough Pending Pending 06/22/20 09:30 WBC 5.1 RBC 3.38 L Hgb 10.4 L Hct 31.5 L MCV 93.2 MCH 30.8 MCHC 33.0 RDW 12.5 Plt Count 243 MPV 11.0 H Neut % (Auto) 56.4 Lymph % (Auto) 29.6 [place] % (Auto) 10.9 Eos % (Auto) 2.5 Baso % (Auto) 0.6 Lymph # (Auto) 1.52 [place] # (Auto) 0.56 Eos # (Auto) 0.13 Baso # (Auto) 0.03 Absolute Neutrophils 2.89 Sodium Potassium Chloride Carbon Dioxide Anion Gap BUN Creatinine GFR Calculation Glucose Calcium Vancomycin Trough Preliminary micro results at discharge 06/21/20 20:48 Blood Culture - Preliminary Blood 06/21/20 20:22 Blood Culture - Preliminary Blood Discharge Plan Patient/Caregiver Discharge Instructions Activity: increase activity as tolerated and other Diet: Regular Diet Prescriptions: New doxycycline hyclate 100 mg capsule 100 mg PO BID Qty: 10 RF: 0 amoxicillin 875 mg tablet 875 mg PO Q12H Qty: 10 RF: 0 hydrocodone-acetaminophen 5-325 mg Tablet 1 tab PO Q4-6HP PRN (Reason: Pain Level 3-6) Qty: 20 RF: 0 No Action implanted control implant See Rx Instructions .ROUTE .COMPLEX RF: 0 Follow Up Plan Follow up with: Mark Wheeler MD [Physician] - Rex Gomez MD [Primary Care Provider] - Patient Disposition: Home, Self-Care Prognosis: Fair Discharge Orders: Discharge Order (Routine); Ordered 06/23/20 [facility]in Thrombosis/Pulmonary Embolism Present on Admission: No
[2020-06-23 11:26] LABS: Blood Urea Nitrogen 7 mg/dL (6-20); Calcium 8.3 mg/dL (8.6-10.4); Carbon Dioxide 22 mmol/L (22-30); Chloride 104 mmol/L (96-108); Glomerular Filtration Rate 119; Glucose 171 mg/dL (70-105)
--- NOTE | 2020-06-23 15:09 | Ultrasound Report ---
INDICATION: LEFT HAND ABCESS TECHNIQUE: Informed consent was obtained. Ultrasound localization performed. Routine ChloraPrep skin cleansing. 1% lidocaine injected subcutaneously and deep. An 18-gauge straight needle was utilized. 10 mL of purulent brown fluid was removed and sent to the laboratory for analysis COMPARISON: Previous CT scan dated 06/23/2020 FINDINGS: There is a complex fluid collection over the dorsum of the left hand. This was essentially completely drained. IMPRESSION: Ultrasound-guided drainage of a complex fluid collection on the dorsum of the right hand Interpreted and Authenticated by: Edd Cardona 06/23/20
--- NOTE | 2020-07-04 11:14 | Orthopedic Consult Note ---
HPI Data of Consult Primary Care Provider: Rex Gomez Consult Narrative Chief complaint: Hand infection History of present illness: I did not see this patient in person but I am completing this consult note as [facility]. I was called over the phone with regards to a dorsal hand infection. I advised initial treatment with antibiotics and splinting. At a later date the hand was imaged and a small abscess seen, whereupon I recommended drainage by interventional radiology if possible. I Advised follow-up with me in clinic and I believe the mange arrangements were made with the patient to do this but I do not believe she has return for follow-up. cc:: CC: David Naik [facility] All Active Problems (Updated 06/21/20 @ 19:59 by Pepito Arias MD) UTI (urinary tract infection) (Acute) Hand fracture, right (Acute) Pneumonia (Acute) Chest pain (Acute) IV drug abuse (Acute) Bacteremia due to methicillin susceptible Staphylococcus aureus (MSSA) (Acute) Laceration of hand (Acute) Infection of left hand (Acute) Cellulitis (Acute) Medical History (Updated 06/21/20 @ 19:59 by Pepito Arias MD) UTI (urinary tract infection) Social History (Updated 04/26/18 @ 11:06 by Loco Seals MD) alcohol intake frequency: holiday/special occasion only substance use type: former substance user, heroin and IV drugs MEDS/ALLERGIES Home Medications and Allergies Home Medications Medication Instructions Recorded Confirmed Type implanted control See Rx Instructions .ROUTE .COMPLEX 03/28/18 06/21/20 History amoxicillin 875 mg PO Q12H #10 tab 06/23/20 Rx doxycycline hyclate 100 mg PO BID #10 cap 06/23/20 Rx hydrocodone-acetaminophen 1 tab PO Q4-6HP PRN #20 tab 06/23/20 Rx Allergies Allergy/AdvReac Type Severity Reaction Status Date / Time acetaminophen Allergy Rash Verified 06/21/20 19:09 [From Darvocet-N] propoxyphene Allergy Rash Verified 06/21/20 19:09 [From Darvocet-N] codeine AdvReac Other Verified 06/21/20 19:09 [From Tylenol-Codeine #3] ibuprofen AdvReac Other Verified 06/21/20 19:09 ketorolac [From Toradol] AdvReac Anxiety Verified 06/21/20 19:09 tramadol AdvReac Anxiety Verified 06/21/20 19:09 A/P Time Spent With Patient Time: Total time spent is greater than 50% in coordination of care (as documented) at patient's floor/unit and/or counseling patient:
== END 2020-06-23 15:30 | disposition home or self-care (01) ==
LOC: ED 19:01 → MEDSUR 19:01
PROVIDERS: ADMIT Internal Medicine; ATTEND Internal Medicine